=== PATIENT | female | born 1960 | race Caucasian/White ===

== ENCOUNTER 2019-03-25 09:17 | Outpatient (CLI) | payer OTHER | END 2019-03-25 09:18 | disposition home or self-care (01) | LOC: DI.S 09:17 | DX: Z12.31 Encounter for screening mammogram for malignant neoplasm of breast (principal) | CPT/HCPCS: 77067 ==

== ENCOUNTER 2022-12-12 13:10 | Outpatient (CLI) | payer OTHER ==
--- NOTE | 2022-12-13 10:41 | Mammography Report ---
BILATERAL DIGITAL SCREENING MAMMOGRAM 3D/2D: 12/12/2022 CLINICAL: Routine screening. Comparison is made to exams dated: 10/24/2021 mammogram - [facility], 03/25/2019 mammogram - [facility], and 12/21/2016 mammogram - [facility]. There are scattered areas of fibroglandular density in both breasts (category b / 25%-50% glandular t issue). No significant masses, calcifications, or other findings are seen in either breast. There has been no significant interval change. IMPRESSION: NEGATIVE There is no mammographic evidence of malignancy. A 1 year screening mammogram is recommended. Based on the Tyrer Cuzick model (a risk assessment model) the patients lifetime risk is 10.0% and he r 10 year risk is 4.2%. According to the ACR, ACS, and NCCN guidelines, an annual breast MRI exam rad ng with mammogram is recommended if the patients lifetime risk is 20% or greater. This exam was interpreted at Station ID: [id number]. NOTE: For mammograms, a report in lay terms will be sent to the patient. Approximately 15% of breast malignancies will not be visualized mammographically. In the management of a palpable breast mass, a negative mammogram must not discourage biopsy of a clinically suspicious lesion. Electronically Signed By: Samuel gray/wendi:12/12/2022 16:00:12 letter sent: No_Letter ACR BI-RADS Category 1: Negative 3341F PARENCHYMAL PATTERN: (A) - The breast(s) demonstrate(s) scattered fibroglandular densities. BI-RADS CATEGORY: (1) - 1 Mammogram [id number] 1 year screening LATERALITY: (B)
== END 2022-12-12 13:11 | disposition home or self-care (01) ==
LOC: DI 13:10
PROVIDERS: ATTEND Naturopath
DX: Z12.31 Encounter for screening mammogram for malignant neoplasm of breast (principal)

== ENCOUNTER 2022-12-12 13:11 | Outpatient (CLI) | payer OTHER ==
--- NOTE | 2022-12-12 14:19 | DEXA Report ---
PROCEDURE: Dexa Spine and/or Hip INDICATIONS: SCREENING FOR OSTEOPOROSIS TECHNIQUE: Dual energy x-ray absorptiometry (DXA) was performed on a [email or web address] System. Regions measur ed are the AP Spine, femoral neck, and if needed forearm. COMPARISON: None. FINDINGS: Lumbar Spine: Bone Mineral Density 1.159 g/cm/cm,T score -0.2, normal Left Femoral Neck: Bone Mineral Density 0.869 g/cm/cm, T score -1.2, osteopenia Left Hip: Bone Mineral Density 0.940 g/cm/cm,T score -0.5, normal (T score greater or equal to -1.0: NORMAL) (T score from -1.1 to -2.4: OSTEOPENIA) (T score less than or equal to -2.5 to: OSTEOPOROSIS) Impression: Osteopenia. Patients with diagnosis of osteoporosis or osteopenia should have regular bone mineral density assess ment. For those eligible for Medicare, routine testing is allowed once every 2 years. Testing frequ ency can be increased for patients who have rapidly progressing disease or for those who are receivin g medical therapy to restore bone mass. Reviewed by: Ryan Alvarado MD on 12/12/2022 2:18 PM PDT Approved by: Ryan Alvarado MD on 12/12/2022 2:18 PM PDT Station ID: [id number]
== END 2022-12-12 13:12 | disposition home or self-care (01) ==
LOC: DI 13:11
PROVIDERS: ATTEND Naturopath
DX: Z13.820 Encounter for screening for osteoporosis (principal); M85.88 Other specified disorders of bone density and structure, other site

== ENCOUNTER 2024-05-21 16:28 | Outpatient (CLI) | payer OTHER ==
--- NOTE | 2024-05-22 15:32 | XRAY Report ---
PROCEDURE: Foot 3+V BL (Weight Bearing) INDICATIONS: BILATERAL FOOT PAIN TECHNIQUE: 3 views of the bilateral feet were acquired. COMPARISON: None. FINDINGS: Bones: No acute fracture or subluxation identified. Bilateral plantar calcaneal spurs. Soft tissues: Metallic radiopaque foreign body seen in the ventral right mid foot region. IMPRESSION: Metallic radiopaque foreign body in the ventral right midfoot region. Reviewed by: Enmanuel Foster MD on 05/22/2024 3:31 PM PDT Approved by: Enmanuel Foster MD on 05/22/2024 3:31 PM PDT Station ID: [id number]
== END 2024-05-21 16:29 | disposition home or self-care (01) ==
LOC: DI 16:28
PROVIDERS: ATTEND Podiatrist
DX: M79.5 Residual foreign body in soft tissue (principal); M77.32 Calcaneal spur, left foot; M77.31 Calcaneal spur, right foot; M79.671 Pain in right foot; M79.672 Pain in left foot